=== PATIENT | female | born 1965 | race Caucasian/White ===

== ENCOUNTER 2016-06-25 10:55 | Inpatient (IN) | payer MEDICAID ==
[~2016-06-25] VITALS: Ht 157.5 cm; Wt 116.0 kg
--- NOTE | ~2016-06-25 | CATH ---
Cardiac Diagnostic + PCI Report Demographics Patient Name NOAH Hong Gender Female Date of 1965 Age 50 year(s) Patient Number [id number] Date of Study 06/30/2016 Visit Number [id number] Room Number 427 Corporate ID Ht 157.48 cm Wt 122.92 kg Accession Number [id number] BSA 2.17 m kg/m Referring Gretchen Mendenhall Primary Physician Physician MD Raven Torres MD Secondary Physician Physician Basilio Diagnostic Melissa PAREKH Assisting Physician Physician Basilio Interventional Melissa PAREKH Physician Radiocommunications Technician Physician Basilio Findings and Conclusions Diagnostic Findings and Conclusion 1. Single vessel CAD. 2. Mildly elevated LVEDP. Diagnostic Recommendations 1. FFR LAD. Interventional Findings and Conclusion 1. Non hemodynamically significant disease. Interventional Recommendations 1. Medical management. Procedure Description The patient was brought to the diagnostic cardiac catheterization laboratory in the fasting, non-sedated state. Informed consent was obtained in the written and verbal form after the risks and benefits were explained. The patient had no further questions and agreed to proceed. The planned puncture-incision site(s) were shaved and prepped with ChloraPrep and draped in the usual sterile manner. Conscious sedation, supplemental oxygen, and pain control medications were delivered by a registered nurse under physician guidance. Surface ECG rhythm, blood pressure measurement, and pulse oximetry were monitored throughout the procedure. Arterial access. The access site was infiltrated with lidocaine. The vessel was entered with the Seldinger technique. A sheath was advanced into the vessel and used for catheter placement. Selective left coronary angiography. A catheter was advanced into the left coronary vessel ostium under Fluoroscopic guidance. Contrast was injected by hand. Images were obtained in multiple projections. Selective right coronary angiography. A catheter was advanced into the right coronary vessel ostium under fluoroscopic guidance. Contrast was injected by hand. Images were obtained in multiple projections. Left heart catheterization. A catheter was advanced across the aortic valve to the left ventricle under fluoroscopic guidance. Resting hemodynamics were obtained. Arterial artery hemostasis was achieved. The patient was transferred to a regular nursing floor via cart accompanied by a nurse. The patient left the laboratory in stable condition. Diagnostic Cath Status: Urgent Interventional Cath Status: Urgent Procedure Procedure Type Diagnostic procedure:Diagnostic Heart Cath SF PCI procedure:Additional Imaging:, FFR/iFR:, Initial Vessel Indications: Abnormal Stress Test, Diabetes and Hypertension. The procedure was explained in detail to the patient. Risks, complications and alternative treatments were reviewed. Written consent was obtained. Medications Reviewed with Patient prior to Procedure. Complications: No Complication. Angiographic Findings Dominance: Right Cardiac Arteries and Lesion Findings LMCA: Normal (0% Stenosis). LAD: Abnormal. Lesion on Prox LAD: 60% stenosis . Devices used - VERRATA. Number of passes: 1. Lesion on 1st Diag: Ostial.80% stenosis . LCx: Abnormal. Lesion on Mid CX: 40% stenosis . RCA: Abnormal. Lesion on Mid RCA: 20% stenosis . Coronary Tree Procedure Data Procedure Date Date: 06/30/2016Start: 09:34 AM Entry Locations - Percutaneous access was performed through the Right Radial artery (Primary location). A 6 Fr sheath was inserted. Hemostasis was successfully obtained using a TR band. Procedure Medications Order and Administration + + +---------+-------+ !Time !Medication !Dosage !Route ! + + +---------+-------+ !06/30/2016 !Versed !2 mg !I.V. ! !09:28 AM ! ! ! ! + + +---------+-------+ !06/30/2016 !Fentanyl !25 mcg !I.V. ! !09:28 AM ! ! ! ! + + +---------+-------+ 06/30/2016 !Sodium Chloride !20 ml !I.V. ! !09:28 AM ! ! ! ! + + +---------+-------+ !06/30/2016 !Versed !1 mg !I.V. ! !09:41 AM ! ! ! ! + + +---------+-------+ !06/30/2016 !Fentanyl !25 mcg !I.V. ! !09:42 AM ! ! ! ! + + +---------+-------+ 06/30/2016 !Versed !1 mg !I.V. ! !09:48 AM ! ! ! ! + + +---------+-------+ !06/30/2016 !Fentanyl !50 mcg !I.V. ! !09:48 AM ! ! ! ! + + +---------+-------+ !06/30/2016 !SF Radial Cocktail: 200mcg Nitro, 2.5 mg! !I.A. ! !09:53 AM !Verapamil, 5000u Heparin ! ! ! + + +---------+-------+ !06/30/2016 !Versed !2 mg !I.V. ! !09:54 AM ! ! ! ! + + +---------+-------+ !06/30/2016 !Heparin (ACC_3) !3000 !I.V. ! !10:03 AM ! !units ! ! + + +---------+-------+ !06/30/2016 !Fentanyl !50 mcg !I.V. ! !10:03 AM ! ! ! ! + + +---------+-------+ 06/30/2016 !Adenosine (IV) !24 mg !I.V. ! !10:10 AM ! ! ! ! + + +---------+-------+ !06/30/2016 !Lukasz !4 mg !I.V. ! !10:27 AM ! ! ! ! + + +---------+-------+ Devices Used - A6F TIG CATHETERwas used for:Left coronary angiography. - ACATH 6FR MPA-1 CATHETER 100CMwas used for:Right coronary angiography. - AGUIDE CATHETER 6FR FCL 3.5 100CMwas used for:Fractional Flow [place] measurments. Contrast Material - Isovue 41052 ml Fluoroscopy Time: Diagnostic: 4:12 minutes. Total: 4:12 minutes. Fluoroscopy Dose: Diagnostic: 843 mGy. Total: 843 mGy. Estimated Blood Loss: 12 ml. Medical History Performed Procedures and Imaging Results - Stress testing with SPECT MPIwas performed on 06/29/2016. Results were: Positive. Risk/Extent of ischemia was: Intermediate risk. Allergies - Morphine. - Other:(Hydrocodone). Risk Factors The patient risk factors include:obesity, cerebrovascular disease, hypertension, insulin-treated diabetes mellitus, chronic lung disease, last creatinine: 0.8 mg/dl, creatinine clearance: 159.63 ml/min and prior heart failure . Admission Data Admission Date: 06/25/2016 Admission Time: 02:30 PM Insurance Payors: Medicaid. Clinical Evaluation Leading to Procedure Diagnosed on 06/30/2016 09:00 AM. - The patient's CAD presentation was assessed as: Unstable angina. - The patient's anginal syndrome during the past two weeks was assessed as: Class III according to the [place] Cardiovascular Society Classification System (CCS). Anti-anginal medications were prescribed during the past two weeks. The medications are: Beta Blockers and Ca channel Blockers. Hemodynamics Condition: Rest O2 Consumption: Estimated: 220.08Heart Rate: 81 bpm Pressures (mmHg) +-----+ + !Site !Pressure ! +-----+ + !AO !139/72 (100) ! +-----+ + !AO !145/75 (106) ! +-----+ + !LV !152/10 ,18 ! +-----+ + Shunts Oxygen Values O2 Capacity 168.64 O2 Consumption 220.08 Discharge Data Discharge Date: 06/30/2016 Hospital Status: Inpatient Signatures
--- NOTE | ~2016-06-25 | ECH ---
Transthoracic Echocardiography Report (TTE) Demographics Patient Name LEON ZAMORA Date of Study 06/26/2016 Patient Number [id number] Visit Number [id number] Date of 1965 Room Number 314 Accession Number [id number] Gender Female Age 50 year(s) Referring Ismael Jacome MD Dry Cans Operator Cordelai Walton Physician Gretchen Mendenhall RDCS, MD Physician Interpreting Ismael Jacome MD Car Repairman Physician Supervising Ordering Physician Ismael Jacome MD, MD/P Nurse Stress Air Pumper Conclusions Summary Technically adequate exam. The estimated left ventricular ejection fraction is 60-65%. The left ventricle is mildly dilated . Mild concentric left ventricular hypertrophy. Diastolic assessment reveals Grade I diastolic dysfunction. The right atrium is mildly dilated. No significant valvular abnormalities. Procedure Type of Study TTE procedure:Echo Complete SF. Procedure Date Date: 06/26/2016 Start: 02:48 PM Technical Quality: Adequate visualization Indications:Elevated Troponin, Chest pain, Diabetes and Hypertension. Appropriate Use Criteria: 9 Height: 62 inches Weight: 271 pounds BSA: 2.17 m Rhythm: NSR HR: 72 bpm BP: 167/78 mmHg M-Mode/2D Measurements LV Diastolic Dimension: 5.56 cm LV Systolic Dimension: 3.34 cm LV Septum Diastolic: 1.26 cm LV PW Diastolic: 1.27 cm AO Root Dimension: 2.48 cm Cardiac Output: 6.06 l/min LA Dimension: 4.08 cm Cardiac Index: 2.79 l/min*m RV Diastolic Dimension: 3.01 cm LA volume index: 21 ml/m LVOT: 1.94 cm LVOT VTI: 28.48 cm RV Base: 4 cm LV Stroke volume: 84.14 ml RV Mid: 2.5 cm LV Stroke volume index: 38.77 ml/m TAPSE: 3.2 cm TDI-S': 15 cm/s Doppler Measurements AV Peak Velocity: 1.7 m/s MV Peak E-Wave: 0.88 m/s AV Peak Gradient: 11.56 mmHg MV Peak A-Wave: 0.92 m/s AV Mean Gradient: 6.54 mmHg MV E/A Ratio: 0.95 LVOT Peak Velocity: 1.15 m/s MV P1/2t: 69.3 msec AV Area (Continuity):2.97 cm MV Deceleration Time: 256.9 msec TR Velocity:2.62 m/s MV Area (PHT): 3.17 cm TR Gradient:27.46 mmHg PV Peak Velocity: 1.23 m/s Estimated RAP:3 mmHg PV Peak Gradient: 6.04 mmHg Estimated RVSP: 30 mmHg Estimated PASP: 30.46 mmHg E' Septal Velocity: 0.06 m/s A' Septal Velocity: 0.09 m/s E' Lateral Velocity: 0.05 m/s A' Lateral Velocity: 0.08 m/s RA Area: 18.06 cm Findings Left Ventricle The left ventricle is mildly dilated . Mild concentric left ventricular hypertrophy. Diastolic assessment reveals Grade I diastolic dysfunction. Right Ventricle Normal right ventricle structure and function. Left Atrium Normal left atrial size. Right Atrium The right atrium is mildly dilated. Mitral Valve Normal mitral valve structure and function. Trivial mitral regurgitation by color Doppler. Aortic Valve The aortic valve was not well imaged. Tricuspid Valve Normal tricuspid valve structure and function. Trivial tricuspid regurgitation by color Doppler. Normal pulmonary pressures. Pulmonic Valve The pulmonic valve is not well visualized. Pericardial Effusion No evidence of pericardial effusion. Miscellaneous Visualized portions of the aortic root and ascending aorta appear normal in size. Pleural Effusion No evidence of pleural effusion. Signature
--- NOTE | ~2016-06-25 | CST ---
Cardiac Perfusion Imaging Demographics Patient Name NOAH Hong Gender Female Patient Number [id number] Race Visit Number [id number] Ethnicity Corporate ID Room Number 314 Accession Number [id number] Height 62 inches Date of 1965 Weight 271 pounds Age 50 year(s) BSA 2.17 m Referring Physician Melissa PAREKH BMI 49.57 kg/m Basilio Interpreting Physician [facility] Date of study 06/29/2016 Melissa Richmond Supervising MD/NAEEMP Melissa MICHELLE Technologist Lacy Richmond Ordering Physician Ismael Jacome MD Stress Maureen Suarez rv technician Stress ECG Reading [facility] Nurse Marlyn Singer Physician Melissa Spann The procedure was explained in detail to the patient. Risks, complications and alternative treatments were reviewed. Written consent was obtained. Medications Reviewed with Patient prior to Procedure. Procedure Procedure Type: Nuclear Stress Test:Pharmacological, Lexiscan Procedure Start time: 06/29/2016 08:10 Indications: Chest pain, Abnormal troponin, Hypertension, Diabetes and Obesity. Risk Factors The patient risk factors include:obesity, cerebrovascular disease, hypertension, insulin treated diabetes mellitus, chronic lung disease and prior heart failure . Conclusions Summary Perfusion Images: The overall quality of the study is good. Left ventricular cavity is noted to be normal on the stress and normal on the rest images. There is no evidence of abnormal lung activity. The right ventricle is not visualized an cannot be assessed. Stress SPECT images reveal a medium sized area of mild decreased isotope uptake involving the entire lateral wall of the left ventricle. . Rest SPECT images reveal homogeneous tracer distribution Gated SPECT imaging reveals normal thickening and normal wall motion. Overall left ventricular ejection fraction was calculated to be normal at 70%. Impression 1. No ECG evidence of ischemia with Lexiscan infusion. 2. Myocardial perfusion imaging is moderately abnormal. 3. The images reveal a reversible defect in the entire lateral wall consistent with ischemia . 4. TID ratio of 1.27 suggestive of possible multivessel ischemia. 5. Overall left ventricular systolic function was normal. 6. This is a intermediate risk stress test. 7. There are no previous studies for comparison . Stress Protocols Resting ECG Normal sinus rhythm. Nonspecific ST-T wave changes. Resting HR:85 bpm Resting BP:142/78 mmHg Stress Protocol:Pharmacologic Predicted HR: 168 bpm Test duration: 06:00 min Reason for termination:Infusion complete ECG Findings Normal sinus rhythm. Nonspecific ST-T wave changes. Arrhythmias No rhythm abnormality. Symptoms Chest tightness. Headache. Complications Procedure complication: None. Stress Interpretation No ECG evidence of ischemia with Lexiscan infusion. Imaging Results Summed scores - Summed stress score: 1 - Summed rest score: 0 - Summed difference score: 1 Stress ejection Ejection fraction:70 % EDV :127 ml ESV :38 ml Stroke volume :89 ml LV mass :148 gr Imaging Protocols Rest Stress Isotope:Tc99m Myoview IV Isotope: Tc99m Myoview IV Isotope dose:10.5 mCi Isotope dose:31.9 mCi Date:06/29/2016 07:10 Date:06/29/2016 08:10 Technique: SPECT Technique: Gated Supine SPECT Supine IV remains in place after procedure. Scan Time:30 minutes post injection Scan Time:45-60 minutes post injection Procedure Medications - Regadenoson (Lexiscan) 0.4 mg IV over 10-15 sec. I.V. 0.4 mg. - Aminophylline 50 mg IV I.V. 125 mg. Medications administered per verbal order and read back to physician prior to administration. Medical History Admission Data Admission date: 06/25/2016 Admission Time: 14:30 Hospital Status: Inpatient. Signatures
[~2016-06-25 10:55] MED LIST: ALBUTEROL 0.083% IH; ASA CHILDREN'S81 MG PO; BYSTOLIC10 MG PO; DELTASONE DPS20 MG PO; GABAPENTIN300 MG PO; GLUCOPHAGE XR500 MG PO; IPRATROPIUM IH; KLONOPIN DPS0.5 MG PO; LANTUS100 UNITS/ SQ; LEVAQUIN DPS500 MG PO; MAALOX DPS30 ML PO; NEURONTIN DPS100 MG PO; PEPCID20 MG PO; SURFAK240 MG PO; TEKTURNA150 MG PO; TOPAMAX25 MG PO; TYLENOL DPS325 MG PO; ZOLOFT DPS100 MG PO
[2016-07-01] MEDS ORDERED: TIZANIDINE HCL2 MG PO (11:54)
[2016-07-01] MEDS ORDERED: ATIVAN-DPS2 MG PO (11:55)
[2016-07-01] MEDS ORDERED: GLUCOPHAGE-DPS500 MG PO (11:55)
[2016-07-01] MEDS ORDERED: CARVEDILOL25 MG PO (11:56)
[2016-07-01] MEDS ORDERED: LIPITOR DPS20 MG PO (11:57)
[2016-07-01] MEDS ORDERED: NORVASC DPS10 MG PO (11:57)
[2016-07-01] MEDS ORDERED: NITROSTAT0.4 MG SL (11:57)
--- NOTE | 2016-07-02 14:52 | HP ---
ADMIT: 06/25/2016 RM/LOC: 314 [facility] MR#: [id number] [address] [facility] [address] [place] [id number] [place] [address] History and Physical SEX: F AGE: 50 : 1965 DATE OF SERVICE: CHIEF COMPLAINT: Headache. HISTORY OF PRESENT ILLNESS: Ms. Shen is a 50-year-old woman, who follows at [facility], presented today with complaint of severe headache which started since the last 2 days. She started noticing worsening headache, associated with phonophobia and increased nausea and vomiting. She also reported fever of 102.7 last night. She has history of hypertension and follows at [facility] and is on 2 antihypertensives. She also has history of diabetes mellitus and TIAs in the past. She denied any recent travel or any insect bites. Per the patient, she was compliant with her medications. For the headache, she was trying Motrin and Excedrin since last 2- 3 days. In the ER, she was noted to have systolic 200 and diastolic 96. She also noticed petechial rash on her both legs and petechiae at the blood pressure cuff site. PAST MEDICAL HISTORY: 1. Hypertension. 2. COPD. 3. CHF. 4. History of pancreatitis. 5. History of acute respiratory distress syndrome. 6. Type 2 diabetes mellitus. 7. Hypertension. 8. TIA. 9. Morbid obesity. 10.Obstructive sleep apnea. 11.Neuropathy. 12.Depression. 13.Renal stones. 14.Spinal stenosis. ALLERGIES: TO MORPHINE, HYDROCODONE, AND ACETAMINOPHEN. FAMILY HISTORY: Significant for cancer in her mother. SOCIAL HISTORY: She lives at home with her daughter and a pet dog. Denies any smoking, alcohol, or recreational drug use. REVIEW OF SYSTEMS: Ten-point review of systems negative except as mentioned in the HPI. HOME MEDICATIONS: Reviewed. PHYSICAL EXAMINATION: VITAL SIGNS: Current temperature 98, blood pressure 188/129, heart rate 101, 72% on room air. O2 saturation increased to 90% on 2 L. GENERAL: In no acute distress. ADMIT: 06/25/2016 RM/LOC: 314 [facility] MR#: [id number] [address] [facility] [address] [place], [place] [address] LEON SHEN [address] [place] [address] History and Physical SEX: F AGE: 50 : 1965 HEENT. Head, normocephalic and atraumatic. Extraocular movements intact. CHEST: Decreased breath sounds bilaterally. No wheezes, rales, or rhonchi. CARDIOVASCULAR: S1 and S2 heard. Regular rate and rhythm. Tachycardia. ABDOMEN: Soft, nontender, and nondistended. Active bowel sounds. SKIN: There is petechial rash on bilateral lower extremities and right arm at the blood pressure cuff site. NEUROLOGIC: Awake alert, oriented. PSYCH: Normal affect. Memory intact. DATA REVIEW: CBC showed white count of 10.3, hemoglobin 14, and low platelets of 97. BMP shows creatinine of 1, glucose 299. Normal AST and ALT. She had a chest x-ray which showed mild peribronchial cuffing centrally and no acute findings. CT head showed no acute intracranial abnormality. There is mild chronic small vessel ischemic disease and similar-appearing mild bifrontal atrophy. Her urinalysis is negative. ASSESSMENT AND PLAN: 1. Headache, fever, and phonophobia. I would like to get a lumbar puncture to rule out any underlying meningitis, given her symptoms. Her headaches are likely secondary to hypertension but she does report fevers, hence I would like to do lumbar puncture and check CSF cell count and protein and glucose. I will check blood cultures x2 and empirically start her on ceftriaxone 2 g q.12 hours and vancomycin IV pharmacy to dose. 2. Hypertensive urgency. I will start her on nicardipine drip per protocol and restart her home medications. 3. Diabetes mellitus. Start her on moderate dose insulin sliding scale and diabetic diet. 4. Thrombocytopenia, unclear etiology. We will do a peripheral smear. 5. Chronic obstructive pulmonary disease, on home oxygen. 6. Obesity. 7. Transient ischemic attack. Tania Godinez MD/ raji JOB #: [id number] CC: Tania Godinez, Attending Physician Tania Godinez, Family Physician
--- NOTE | 2016-07-14 11:50 | ER ---
ADMIT: 06/25/2016 RM/LOC: [facility] MR#: [id number] [address] [facility] [address] [place], [place] [address] [place] [address] Emergency Room Report SEX: F AGE: 50 : 1965 DATE: 06/25/2016 HISTORY OF PRESENT ILLNESS: The patient is a 50-year-old female, who presents to the emergency room with increased blood pressure, headache, and nausea. She has had a headache that she says it wraps around her face. She says it is the worse headache she has ever had. She has had headaches in the past like migraine headaches, but she is pretty concerned about this one. She has no exposure to ticks or any . She denies any fever, chills. No sweating. No muscular aches. No runny nose. No shortness of breath. REVIEW OF SYSTEM: Ankle swelling bilaterally, nausea, rash, petechial rash. PAST MEDICAL HISTORY: Diabetes type 2, COPD, spinal stenosis, abdominal mass, and a TIA. ALLERGIES: SHE IS ALLERGIC TO LORTAB. MEDICATIONS: 1. Insulin. 2. Excedrin. 3. Motrin. SOCIAL HISTORY: Alcohol occasionally. PHYSICAL EXAMINATION: VITAL SIGNS: Blood pressure 188/129, heart rate is 101, respirations 29, temp is 98, O2 sats 98% at 4 L. HEENT: Nasal mucosa patent. NECK: Supple. RESPIRATIONS: No distress. Breath sounds are normal. ABDOMEN: Nontender, but obese. CVS: Regular in rate and rhythm. SKIN: Petechial rash in the extremities, not tender to touch. NEURO: Oriented x4. Mood and affect appropriate. ADMIT: 06/25/2016 RM/LOC: [facility] MR#: [id number] [address] [facility] [address] [place] [phone] [place] [address] Emergency Room Report SEX: F AGE: 50 : 1965 Her last dose of aspirin was this morning 81 mg. LABORATORY AND X-RAY DATA: On her chest x-ray, she has a mild peribronchial cuffing, cardiomegaly. CT of the head is negative. EKG normal sinus rhythm, beats per minute 99. CBC; white cell count 10.3, platelets 97. Glucose 299, BNP 1531. Urine protein 2+, glucose 1000 mL. LP ordered by Dr. Godinez having some issues now trying to get someone to do this procedure. CLINICAL IMPRESSION: Headache, hypertensive crisis. Nifedipine drip at this point, to try to lower her blood pressure. The patient will be admitted by Dr. Godinez. She is stable awaiting room placement at this time. AYO Betancourt / Wood Moser MD / abigaill JOB #: [id number] CC: Wood Moser MD, Attending Physician UNKNOWN, Family Physician
--- NOTE | 2016-07-19 09:23 | DS ---
ADMIT: 06/25/2016 RM/LOC: [address] [facility] MR#: [id number] [facility] [id number] [address] [facility] [address] [place] [phone] [place] [address] General Discharge Summary SEX: F AGE: 50 : 1965 ADMISSION DATE: 06/25/2016 DISCHARGE DATE: 06/30/2016 DISCHARGE DIAGNOSES: 1. Headache status post lumbar puncture with no evidence of infection. 2. Hypertension. 3. Hypertensive urgency. 4. Diabetes. 5. Thrombocytopenia. 6. Chronic obstructive lung disease. 7. Obesity. 8. Transient ischemic attack. 9. Elevation of troponin. HISTORY OF PRESENT ILLNESS: Well documented in her H and P. LABORATORY AND RADIOGRAPHIC ASSESSMENT: On admission, her white count was 5.3, hemoglobin 14.0, and platelet count 97,000. Her CSF total white blood cell 2, protein of 49. Glucose of 100. Urinalysis showed 2+ protein, greater than 1000 glucose, serum sodium. BNP was 1500, GFR of 65, troponin of 0.203, 0.132, and 0.023. Blood culture showed no abnormalities. CT of head showed no acute intracranial abnormalities identified. No significant interval change. Mild chronic small vessel disease. Chest x-ray showed mild peribronchial cuffing. Cardiac cath showed no hemodynamic significant disease. Echo report showed estimated left ventricular ejection fraction 60% to 65%. LV is mildly dilated. Mild concentric left ventricular hypertrophy. Diastolic assessment, grade 1 diastolic dysfunction. Right atrium is mildly dilated. EKG on admission sinus rhythm with left ventricular hypertrophy. Lateral ST abnormalities. HOSPITAL COURSE: A 50-year-old, white female, who is cared for at the [facility], was admitted to [facility] with complaints of severe headache, hypertensive urgency, concerns about meningitis. She was seen and evaluated by Dr. Godinez initially, underwent an LP, diabetic diet, started on vancomycin and Rocephin. Moderate dose insulin scale. Her medications are reviewed and continued as appropriate. She had a bump in her troponin, was seen and evaluated by Cardiology. She was initiated on Tekturna and Bystolic, which were home medications as she had elevated blood pressure. She was then seen by Cardiology and started on Coreg 25 mg b.i.d. and spironolactone 25 mg p.o. daily. Hydralazine IV for p.r.n. use for ADMIT: 06/25/2016 RM/LOC: [address] [facility] MR#: [id number] [address] [address] [place] [address] General Discharge Summary SEX: F AGE: 50 : 1965 hypertension. She then was seen by Dr. Bolaños, was placed on clear liquids, up in chair, activity was increased. Blood cultures were negative for meningitis, viral upper respiratory tract infection. Continued management of blood pressure. Her potassium was low, which was then subsequently replaced. She underwent further assessment for heart catheterization. Heart catheterization did not show any evidence of abnormalities and subsequently was discharged home. She will follow up through Cardiology as well as follow up through her primary care physician. She was discharged in stable condition. CSF clear cultures negative for any evidence of meningitis. CT of brain, no acute changes. Blood cultures were negative. Heart catheterization showed no evidence of severe coronary disease. She is O2 dependent. We will continue that at home. Significant COPD. Discharged in stable condition. Jenniffer Perez MD/ raji JOB #: [id number] CC: Tania Godinez MD, Attending Physician Tania Godinez MD, Family Physician
--- NOTE | 2016-08-02 14:57 | CO ---
ADMIT: 06/25/2016 RM/LOC: [address] [facility] MR#: [id number] [facility] [address] [place] [id number] [place] [address] Consultation SEX: F AGE: 50 : 1965 DATE OF CONSULTATION: 06/26/2016 ATTENDING PHYSICIAN: Tania Godinez CONSULTING PHYSICIAN: Thelma Guevara MD REASON FOR CONSULTATION: Abnormal troponin. HISTORY OF PRESENT ILLNESS: I was asked to consult on Ms. Shen at the request of Dr. Godinez for the problems of abnormal troponin. She is a 50-year- old, white female, who has been complaining about severe headaches with photophobia in the past few days. She was admitted for this, also reported a fever. She has also noted that she has been having some chest discomfort with exertion over the past few days to weeks. She notes it is made worse with anxiety as well. She denies any orthopnea or PND. She has had the fevers and chills, but she denies any cough or cold symptoms recently. PAST MEDICAL HISTORY: Includes: 1. Hypertension. 2. COPD. 3. CHF. 4. History of pancreatitis. 5. History of acute respiratory distress syndrome. 6. Diabetes. 7. History of TIA. 8. Obesity. 9. Sleep apnea. 10.Neuropathy. 11.Depression. ALLERGIES: INCLUDE MORPHINE, HYDROCODONE, ACETAMINOPHEN. FAMILY HISTORY: Significant for cancer in the mother. SOCIAL HISTORY: She lives at home with her daughter and a pet dog. MEDICATIONS: Currently include: 1. Bystolic 10 mg a day. 2. Glucophage 500 mg b.i.d. 3. Neurontin 300 mg at bedtime. 4. Neurontin 200 mg. 5. Tekturna 150 mg a day. 6. Zanaflex 4 mg a day. 7. Zoloft 200 mg a day. 8. Levemir 14 units at bedtime. 9. Novolin as directed. 10.Cardene drip. 11.Rocephin. 12.Vancomycin. ADMIT: 06/25/2016 RM/LOC: [address] [facility] MR#: [id number] [facility] [address] [place] [id number] [place] [address] Consultation SEX: F AGE: 50 : 1965 REVIEW OF SYSTEMS: A full 12-point review of systems was obtained and deemed to be negative except for the pertinently dictated positives in the HPI. PHYSICAL EXAMINATION: VITAL SIGNS: Today, currently, her blood pressure is 114/58, with a pulse of 60, temp is 99.5. Her weight is 271 pounds. GENERAL: She is an anxious-appearing white female, in no acute distress. Alert and oriented x3. NECK: Shows brisk carotid upstrokes. No JVD or bruit. CHEST: Clear. HEART: Regular. ABDOMEN: Soft. EXTREMITIES: Show no cyanosis, clubbing, or edema. MUSCULOSKELETAL: Normal. NEUROLOGIC: Normal. SKIN: [place], warm, and dry. LABORATORY AND ANCILLARY DATA: Shows a potassium of 3.2, creatinine of 0.8, magnesium is not checked, CK 46, MB 1.2, troponin is 0.132, hemoglobin is 13.2, with a platelet count of 216,000. CT of her head shows no acute bleeds. Chest x-ray, notes mild cardiomegaly, poor image. ASSESSMENT: 1. Abnormal troponin. 2. Chest pain. 3. Headache. 4. Diabetes. 5. Hypertension with urgency. PLAN: The patient describes some symptoms concerning for angina in the past few weeks, question of coronary artery disease or hypertension contributing to this. We will attempt to titrate her home meds with more affordable options. We will check an echocardiogram. We will consider either a stress test versus cardiac catheterization prior to discharge. Thelma Guevara MD/ raji JOB #: [id number] CC: Tania Godinez, Attending Physician Tania Godinez, Family Physician
== END 2016-06-30 17:01 | disposition home or self-care (01) | DRG 286 ==
LOC: ER 10:55 → 3ICU 14:30 → 4PCU 14:30 → 3ICU 06-27 12:30 → 4PCU 06-29 18:16
PROVIDERS: ADMIT Internal Medicine Infectious Disease
PROC: B2111ZZ Fluoroscopy of Multiple Coronary Arteries using Low Osmolar Contrast (ICD-10-PCS; 2016-06-25)
PROC: 4A023N7 Measurement of Cardiac Sampling and Pressure, Left Heart, Percutaneous Approach (ICD-10-PCS; 2016-06-25)
PROC: 4A033BC Measurement of Arterial Pressure, Coronary, Percutaneous Approach (ICD-10-PCS; 2016-06-25)
PROC: 03HY32Z Insertion of Monitoring Device into Upper Artery, Percutaneous Approach (ICD-10-PCS; 2016-06-25)
PROC: 009U3ZX Drainage of Spinal Canal, Percutaneous Approach, Diagnostic (ICD-10-PCS; principal; 2016-06-26)
PROC: B01B1ZZ Fluoroscopy of Spinal Cord using Low Osmolar Contrast (ICD-10-PCS; principal; 2016-06-26)
DX: I16.0 Hypertensive urgency (principal); J96.21 Acute and chronic respiratory failure with hypoxia; E11.40 Type 2 diabetes mellitus with diabetic neuropathy, unspecified; D69.6 Thrombocytopenia, unspecified; I50.9 Heart failure, unspecified; Z99.81 Dependence on supplemental oxygen; Z68.42 Body mass index [BMI] 45.0-49.9, adult; R51 Headache; I11.0 Hypertensive heart disease with heart failure; R21 Rash and other nonspecific skin eruption; E87.6 Hypokalemia; J44.9 Chronic obstructive pulmonary disease, unspecified; M48.00 Spinal stenosis, site unspecified; I51.7 Cardiomegaly; R79.89 Other specified abnormal findings of blood chemistry; E66.01 Morbid (severe) obesity due to excess calories; G47.33 Obstructive sleep apnea (adult) (pediatric); F32.9 Major depressive disorder, single episode, unspecified; Z79.4 Long term (current) use of insulin; Z86.73 Personal history of transient ischemic attack (TIA), and cerebral infarction without residual deficits; Z79.82 Long term (current) use of aspirin; Z79.84 Long term (current) use of oral hypoglycemic drugs

== ENCOUNTER → 2016-07-09 | Outpatient (CLI) | payer MEDICAID ==
[~2016-07-09] MED LIST changes: +ATIVAN-DPS2 MG PO; +CARVEDILOL25 MG PO; +GLUCOPHAGE-DPS500 MG PO; +LIPITOR DPS20 MG PO; +NITROSTAT0.4 MG SL; +NORVASC DPS10 MG PO; +TIZANIDINE HCL2 MG PO
== END | disposition home or self-care (01) ==
LOC: PTH.S 17:00
DX: I10 Essential (primary) hypertension (principal)

== ENCOUNTER → 2016-12-06 | Outpatient (CLI) | payer MEDICARE | END | disposition home or self-care (01) | DX: R09.02 Hypoxemia (principal); R06.02 Shortness of breath; R06.00 Dyspnea, unspecified ==